=== PATIENT | male | born 1965 | race Caucasian/White ===

== ENCOUNTER 2024-10-28 12:59 | Outpatient (RCR) | payer OTHER, SELFPAY | END 2024-11-14 23:59 | disposition home or self-care (01) | LOC: SOT 12:59 | PROVIDERS: Family Provider Family Medicine; Visit Provider Orthopaedic Surgery Hand Surgery | DX: S52.501E Unspecified fracture of the lower end of right radius, subsequent encounter for open fracture type I or II with routine healing (principal); X58.XXXD Exposure to other specified factors, subsequent encounter | CPT/HCPCS: 97022; 97110; 97140; 97167; 97530 ==

== ENCOUNTER 2024-11-10 07:06 | Outpatient (RCR) | payer OTHER, SELFPAY | END 2024-11-14 23:59 | disposition home or self-care (01) | LOC: SPT 07:06 | PROVIDERS: Visit Provider Family Medicine | DX: M62.81 Muscle weakness (generalized) (principal); R26.81 Unsteadiness on feet | CPT/HCPCS: 97110; 97162 ==

== ENCOUNTER 2024-11-15 05:00 | Outpatient (RCR) | payer OTHER, SELFPAY | END 2024-12-14 23:59 | disposition home or self-care (01) | LOC: SOT 05:00 | PROVIDERS: Family Provider Family Medicine; Visit Provider Orthopaedic Surgery Hand Surgery | DX: S52.59 Other fractures of lower end of radius (principal); R20.2 Paresthesia of skin; X58.XXXD Exposure to other specified factors, subsequent encounter | CPT/HCPCS: 97022; 97035; 97110; 97140; G0283 ==

== ENCOUNTER 2025-03-08 07:54 | Outpatient (RCR) | payer OTHER, SELFPAY | END 2025-03-16 23:59 | disposition home or self-care (01) | LOC: SOT 07:54 | PROVIDERS: Visit Provider Physician Assistant Surgical | DX: G56.21 Lesion of ulnar nerve, right upper limb (principal) | CPT/HCPCS: 97022; 97110; 97167; 97530 ==

== ENCOUNTER 2025-03-17 05:00 | Outpatient (RCR) | payer OTHER, SELFPAY | END 2025-04-16 23:59 | disposition home or self-care (01) | LOC: SOT 05:00 | PROVIDERS: Visit Provider Physician Assistant Surgical | DX: G56.21 Lesion of ulnar nerve, right upper limb (principal) | CPT/HCPCS: 97022; 97110; 97140; G0283 ==